=== PATIENT | male | born 1990 | race Caucasian/White ===

== ENCOUNTER → 2017-09-23 | Outpatient (CLI) | payer OTHER ==
[2017-09-23 18:36] LABS: PLATELET COUNT, AUTOMATED 157 K/uL (150-450)
== END ==
LOC: LAB 17:59
PROVIDERS: ATTEND Urology
DX: R31.0 Gross hematuria (principal); R36.1 Hematospermia
CPT/HCPCS: 36415; 81001; 82040; 82247; 82310; 82374; 82435; 82565; 82947; 84075; 84132; 84153; 84155; 84295; 84450; 84460; 84520; 85025; 87088

== ENCOUNTER → 2017-12-11 | Outpatient (CLI) | payer OTHER ==
[~2017-12-11] MED LIST: IOPAMIDOL 76% 50 ML INFUS BTL 50 ML ONE; IOPAMIDOL 76% 75 ML INFUS BTL 75 ML ONE; NS(*) 0.9% 50 ML BAG 50 ML ONE
--- NOTE | 2017-12-11 09:33 | RADIOLOGY IMAGING REPORT ---
[place]AC[place] [facility] [place] NAME: Eliu Burnett : 1990 MR: [id number] V: [id number] EXAM DATE: ORDERING PHYSICIAN: NADEEN BOYKIN TECHNOLOGIST: Location: [facility] [place] Patient: Eliu Burnett : 1990 Visit/Account:[id number] Date of Sevice: 12/11/2017 ABDOMEN/PELVIS W/WO CONTRAST HISTORY: Hematuria TECHNIQUE: Axial images acquired through the abdomen/pelvis both with and without IV contrast.. Rebeca nal and sagittal reformatting also performed. Dose Lowering Technique One of the following dose optimization techniques was utilized in the performance of this exam: Autom ated exposure control; adjustment of the mA and/or kV according to the patient's size; or use of an i terative reconstruction technique. Specific details can be referenced in the facility's radiology C T exam operational policy. CONTRAST: 125 mL Isovue-370 COMPARISON: None. FINDINGS: Visualized lung bases: Negative. Hepatobiliary: Negative. Spleen: Negative. Adrenals: Negative. Pancreas: Negative. Kidneys ureters and bladder: There is no demonstration of urolithiasis, hydronephrosis or hydroureter or renal mass Genitalia: There are prominent vessels in the superior left side of the scrotal sac. A varicocele c annot be totally excluded GI: Negative. Vessels/spaces/nodes: There shotty retroperitoneal lymph nodes Bones/soft tissues: No aggressive appearing bone lesions are seen Additional findings: None pertinent. IMPRESSION: There is no demonstration of urolithiasis, hydronephrosis, hydroureter or renal mass There are prominent vessels in the superior left-sided scrotal sac. A varicocele cannot be totally e xcluded. This could be further evaluated with ultrasound Report Dictated By: Vilma Rose MD at 12/11/2017 9:19 AM Report E-Signed By: Vilma Rose MD at 12/11/2017 9:29 AM WSN:[id number]
== END ==
LOC: US 03:33
PROVIDERS: ATTEND Urology
DX: N50.89 Other specified disorders of the male genital organs (principal)
CPT/HCPCS: 74178; J7050; Q9967